=== PATIENT | male | born 1950 | race Caucasian/White ===

== ENCOUNTER 2023-07-09 10:05 | Outpatient (CLI) | payer OTHER | END 2023-07-09 10:16 | disposition home or self-care (01) | LOC: TOM 10:05 | PROVIDERS: ATTEND Specialist | DX: M48.02 Spinal stenosis, cervical region (principal); M50.120 Mid-cervical disc disorder, unspecified level; M50.020 Cervical disc disorder with myelopathy, mid-cervical region, unspecified level; M47.22 Other spondylosis with radiculopathy, cervical region; M48.061 Spinal stenosis, lumbar region without neurogenic claudication; M54.50 Low back pain, unspecified ==